=== PATIENT | male | born 1970 | race Caucasian/White ===

== ENCOUNTER → 2016-10-15 | Outpatient (REF) ==
--- NOTE | 2016-10-15 11:13 | Diagnostic Imaging Report ---
INDICATION: Left wrist pain. AP, oblique, and lateral views of left wrist are obtained. FINDINGS: No fracture or acute bony abnormality is seen. 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 IMPRESSION: No acute bony abnormality. Dictated by: Dictated on workstation # [id number]
== END | disposition home or self-care (01) ==
LOC: OCC 10:50
PROVIDERS: ATTEND Nurse Practitioner Family
CPT/HCPCS: 73110